=== PATIENT | female | born 1995 ===

== ENCOUNTER 2025-08-27 10:11 | Inpatient (IN) | payer OTHER ==
[2025-08-26 12:57] VITALS: BMI 30.7
[2025-08-26 13:18] LABS: Hematocrit 33.0 % (34.9-44.5); Hemoglobin 10.8 g/dL (12.0-15.5); Mean Corpuscular Hemoglobin 29.0 pg (27.0-33.0); Mean Corpuscular Volume 88.7 fL (81.6-98.3); Platelet Count 187 10x3/uL (150-450); Red Blood Cell (RBC) Count 3.72 10x6/uL (3.90-5.03); White Blood Cell (WBC) Count 7.58 10x3/uL (3.5-10.5)
[2025-08-26 15:03] LABS: HIV (1/2) Antibody/Antigen Non-Reactive (NonReactive); HIV 1/2 INDEX 0.08 S/CO (<1.00); Hep B Surf Ag Non-Reactive S/CO (NonReactive)
[2025-08-26 15:04] LABS: Syphilis Antibody Index 0.05 S/CO (<1.00 Non-Reactive)
[~2025-08-27 10:11] MED LIST: Acetaminophen 500 MG TAB PO PRN; Bicitra 30 ML UDCUP PO PRN; Carboprost 250 MCG/ML AMP IM PRN; Diphenoxylate HCl/Atropine Tablet PO PRN; Famotidine/PF 20 mg/2ml Vial SLOW IVP PRN; Methylergonovine 0.2 MG/ML VIAL IM PRN; Ondansetron PF 4 MG/2 ML Vial IVP PRN; Oxytocin 30 units/NS 500 ML 500 ML IV SCH; Tranexamic Acid 1,000 MG/10 ML VIAL IVP PRN; hydrALAZINE 20 MG/ML VIAL SLOW IVP PRN
[2025-08-27 13:08] LABS: Analyzer IN Cardio CS NICU; Critical Notified By: Udy, RRT
[2025-08-27 13:09] LABS: Analyzer IN Cardio CS NICU; Critical Notified By: Udy, RRT; pH (Cord, venous) 7.393 (7.250-7.350)
[2025-08-27 13:19] LABS: Analyzer IN Cardio CS ER; Critical Notified By: S. Buerger, RRT; RapidComm Collect By RN; pH (Cord, venous) 7.367 (7.250-7.350)
[2025-08-27 13:21] LABS: Analyzer IN Cardio CS ER; Critical Notified By: S. Buerger, RRT; RapidComm Collect By RN
[2025-08-27] MEDS ORDERED: Ondansetron PF 4 MG/2 ML Vial IVP PRN ×3 (13:25→13:32)
[2025-08-27] MEDS ORDERED: hydrALAZINE 20 MG/ML VIAL SLOW IVP PRN (13:25)
[2025-08-27] MEDS ORDERED: Methylergonovine 0.2 MG/ML VIAL IM PRN (13:25)
[2025-08-27] MEDS ORDERED: Oxytocin 30 units/NS 500 ML 500 ML IV SCH (13:30)
[2025-08-27] MEDS ORDERED: Meperidine HCl/PF 25 MG (1 mL) VIAL SLOW IVP PRN (13:32)
[2025-08-27] MEDS ORDERED: HYDROmorphone 0.5 MG/0.5 ML SYRINGE SLOW IVP PRN (13:32)
[2025-08-27] MEDS ORDERED: diphenhydrAMINE 50 MG/ML VIAL IVP PRN (13:32)
[2025-08-27] MEDS ORDERED: Ketorolac Tromethamine 30 MG (1 mL) VIAL IVP SCH (13:45)
[2025-08-27] MEDS ORDERED: Communication Order-Pharmacy FS SCH (13:45)
[2025-08-27] MEDS: Ketorolac Tromethamine 30 MG (1 mL) VIAL IVP PRN (16:54)
[2025-08-27] MEDS: Oxytocin 10 UNITS/ML VIAL ONE (17:14)
[2025-08-27] MEDS: Ferrous Sulfate 325 MG TAB PO SCH (21:11)
[2025-08-28 06:06] LABS: Hematocrit 32.9 % (34.9-44.5); Hemoglobin 10.4 g/dL (12.0-15.5); Mean Corpuscular Hemoglobin 28.9 pg (27.0-33.0); Mean Corpuscular Volume 91.4 fL (81.6-98.3); Platelet Count 153 10x3/uL (150-450); Red Blood Cell (RBC) Count 3.60 10x6/uL (3.90-5.03); White Blood Cell (WBC) Count 7.76 10x3/uL (3.5-10.5)
[2025-08-28] MEDS: Acetaminophen 325 MG TAB PO PRN (08:15)
[2025-08-28] MEDS: Fluconazole 100 MG TAB PO SCH (08:16)
[2025-08-28] MEDS: Ferrous Sulfate 325 MG TAB PO SCH (09:58)
[2025-08-28] MEDS: metroNIDAZOLE 500 MG TAB PO SCH (11:18)
[2025-08-28] MEDS: Ibuprofen 800 MG TAB PO SCH (17:46)
[2025-08-29] MEDS: Simethicone Chewable 80 MG TAB PO PRN (09:34)
[2025-08-29 11:18] VITALS: BP 111/59; TEMP 98.2
== END 2025-08-29 16:10 | disposition home or self-care (01) | DRG 787 ==
LOC: CSHLD 10:11 → CSHPED 16:30
PROVIDERS: ADMIT Obstetrics & Gynecology; ATTEND Obstetrics & Gynecology
PROC: 10D00Z1 Extraction of Products of Conception, Low, Open Approach (ICD-10-PCS; principal; 2025-08-27)
PROC: 10907ZC Drainage of Amniotic Fluid, Therapeutic from Products of Conception, Via Natural or Artificial Opening (ICD-10-PCS; 2025-08-27)
PROC: 3E03329 Introduction of Other Anti-infective into Peripheral Vein, Percutaneous Approach (ICD-10-PCS; 2025-08-27)
PROC: 3E0234Z Introduction of Serum, Toxoid and Vaccine into Muscle, Percutaneous Approach (ICD-10-PCS; 2025-08-27)
DX: O60.14X0 Preterm labor third trimester with preterm delivery third trimester, not applicable or unspecified (principal); O98.82 Other maternal infectious and parasitic diseases complicating childbirth; O30.033 Twin pregnancy, monochorionic/diamniotic, third trimester; O32.8XX0 Maternal care for other malpresentation of fetus, not applicable or unspecified; Z3A.35 35 weeks gestation of pregnancy; O99.02 Anemia complicating childbirth; Z37.2 Twins, both liveborn; B37.31 Acute candidiasis of vulva and vagina; Z23 Encounter for immunization
CPT/HCPCS: 36415; 51702; 82805; 85027; 86780; 86850; 86900; 86901; 87340; 87389; 88307; J1885; J2274; J2550; J2590